=== PATIENT | female | born 1950 | race Caucasian/White ===

== ENCOUNTER 2021-07-09 09:52 | Outpatient (CLI) | payer MEDICARE, BC ==
[2021-07-09 14:52] LABS: BASOPHILS # (AUTO) 0.1 10^3/uL (0.0-0.1); BASOPHILS % (AUTO) 0.7 %; EOSINOPHILS # (AUTO) 0.3 10^3/uL (0.0-0.7); EOSINOPHILS % (AUTO) 4.5 %; HCT - HEMATOCRIT 40.7 % (37.0-47.0); HGB - HEMOGLOBIN 12.9 g/dL (12.0-16.0); LYMPHOCYTES # (AUTO) 2.2 10^3/uL (1.5-3.5); MEAN CORPUSCULAR HEMOGLOBIN 30.4 pg (27.0-31.0); MEAN CORPUSCULAR HGB CONC 31.7 g/dL (32.0-36.0); MEAN PLATELET VOLUME 10.7 fL (7.9-10.8); MONOCYTES # (AUTO) 0.6 10^3/uL (0.0-1.0); MONOCYTES % (AUTO) 7.5 %; NEUTROPHILS # (AUTO) 4.2 10^3/uL (1.5-6.6); PLT - PLATELET COUNT 284 10^3/uL (130-450); RED BLOOD COUNT 4.24 10^6/uL (4.20-5.40); RED CELL DISTRIBUTION WIDTH 14.6 % (12.0-15.0); WHITE BLOOD COUNT 7.3 x10^3/uL (4.8-10.8)
[2021-07-09 15:10] LABS: ALBUMIN 3.8 g/dL (3.2-5.5); ALBUMIN/GLOBULIN RATIO 1.4 (1.0-2.2); ALKALINE PHOSPHATASE 77 IU/L (42-121); ALT ALANINE AMINOTRANSFERASE 18 IU/L (10-60); AST ASPARTATE AMINOTRANSFERASE 18 IU/L (10-42); BILIRUBIN,TOTAL 0.6 mg/dL (0.2-1.0); BUN - BLOOD UREA NITROGEN 18 mg/dL (6-20); CALCIUM 9.1 mg/dL (8.5-10.3); CARBON DIOXIDE - CO2 27 mmol/L (21-32); CHLORIDE 104 mmol/L (101-111); CHOL/HDL RATIO 3.4 (<4.4); CHOLESTEROL 210 mg/dL; CREATININE 0.9 mg/dL (0.4-1.0); GFR - MDRD 62 (>89); GLUCOSE 95 mg/dL (70-100); HDL CHOLESTEROL 61 mg/dL; LDL CHOLESTEROL,CALCULATED 132 mg/dL; LDL/HDL RATIO 2.2 (<4.4); POTASSIUM 3.8 mmol/L (3.5-5.0); SODIUM 139 mmol/L (135-145); TOTAL PROTEIN 6.6 g/dL (6.7-8.2); TRIGLYCERIDES 83 mg/dL; VLDL CHOLESTEROL 17 mg/dL
[2021-07-09 15:22] LABS: THYROID STIMULATING HORMONE 1.04 uIU/mL (0.34-5.60)
[2021-07-09 20:48] LABS: ESTIMATED AVERAGE GLUCOSE 111 mg/dL (70-100); HEMOGLOBIN A1c% 5.5 % (4.27-6.07)
== END 2021-07-09 09:53 | disposition home or self-care (01) ==
LOC: LAB.S 09:52
PROVIDERS: ATTEND Family Medicine
DX: Z00.00 Encounter for general adult medical examination without abnormal findings (principal)
CPT/HCPCS: 36415; 80053; 80061; 83036; 83721; 84443; 85025

== ENCOUNTER 2022-11-03 08:50 | Outpatient (CLI) | payer MEDICARE, OTHER ==
--- NOTE | 2022-11-04 08:49 | Mammography Report ---
BILATERAL DIGITAL SCREENING MAMMOGRAM 3D/2D: 11/03/2022 CLINICAL: Routine screening. Comparison is made to exam dated: 07/31/2021 mammogram - [facility]. There are scattered areas of fibroglandular density in both breasts (category b / 25%-50% glandular t issue). No significant masses, calcifications, or other findings are seen in either breast. There has been no significant interval change. IMPRESSION: NEGATIVE There is no mammographic evidence of malignancy. A 1 year screening mammogram is recommended. Based on the Tyrer Cuzick model (a risk assessment model) the patients lifetime risk is 4.9% and her 10 year risk is 3.4%. According to the ACR, ACS, and NCCN guidelines, an annual breast MRI exam vasquez g with mammogram is recommended if the patients lifetime risk is 20% or greater. This exam was interpreted at Station ID: [id number]. NOTE: For mammograms, a report in lay terms will be sent to the patient. Approximately 15% of breast malignancies will not be visualized mammographically. In the management of a palpable breast mass, a negative mammogram must not discourage biopsy of a clinically suspicious lesion. Electronically Signed By: Devante andrew/brayden:11/03/2022 16:24:49 letter sent: No_Letter ACR BI-RADS Category 1: Negative 3341F PARENCHYMAL PATTERN: (A) - The breast(s) demonstrate(s) scattered fibroglandular densities. BI-RADS CATEGORY: (1) - 1 Mammogram [id number] 1 year screening LATERALITY: (B)
== END 2022-11-03 08:51 | disposition home or self-care (01) ==
LOC: DI.S 08:50
DX: Z12.31 Encounter for screening mammogram for malignant neoplasm of breast (principal)

== ENCOUNTER 2023-07-28 15:25 | Outpatient (CLI) | payer MEDICARE, OTHER ==
--- NOTE | 2023-07-28 23:34 | XRAY Report ---
PROCEDURE: Thoracic Spine 2V INDICATIONS: SCOLIOSIS, TENDERNESS OF SACROILIAC JOINT TECHNIQUE: 2 views of the thoracic spine were acquired. COMPARISON: None. FINDINGS: Bones: No fractures or dislocations. No suspicious bony lesions. Levocurvature of the lower thoraci c spine. Diffusely decreased osseous mineralization. Multilevel degenerative changes of the thoracic spine with intervertebral disc height loss, degenerative endplate changes and osteophytosis. No defin ite compression deformities are seen. Soft tissues: No paravertebral stripe thickening. IMPRESSION: Multilevel degenerative changes of the thoracic spine as described above. No definite compression def ormities are seen. Reviewed by: Nael Mosley MD on 07/28/2023 11:33 PM PST Approved by: Nael Mosley MD on 07/28/2023 11:33 PM PST Station ID: [id number]
--- NOTE | 2023-07-28 23:35 | XRAY Report ---
PROCEDURE: Lumbar Spine 4V INDICATIONS: SCOLIOSIS TECHNIQUE: 3 views of the lumbar spine were acquired. COMPARISON: None. FINDINGS: Bones: 5 [id number] vertebrae are present. Dextrocurvature of the lumbar spine. Grade I anterol isthesis of L4 on L5. Diffusely decreased osseous mineralization. There are multilevel degenerative c hanges of the lumbar spine with facet arthropathy and disc height loss with degenerative endplate roderick nges and marginal spurring. No vertebral body compression fractures. No suspicious bony lesions. N o definite pars interarticularis defects are seen. Soft tissues: Overlying bowel gas pattern is normal. No suspicious soft tissue calcifications. Ath erosclerotic vascular calcifications. IMPRESSION: Multilevel degenerative changes of the lumbar spine as described above. Reviewed by: Nael Irnee MD on 07/28/2023 11:33 PM PST Approved by: Nael Irene MD on 07/28/2023 11:33 PM PST Station ID: [id number]
== END 2023-07-28 15:26 | disposition home or self-care (01) ==
LOC: DI.S 15:25
PROVIDERS: ATTEND Internal Medicine
DX: M47.814 Spondylosis without myelopathy or radiculopathy, thoracic region (principal); M47.816 Spondylosis without myelopathy or radiculopathy, lumbar region; M43.16 Spondylolisthesis, lumbar region

== ENCOUNTER 2023-10-12 08:32 | Day surgery (SDC) | payer MEDICARE, OTHER ==
--- NOTE | 2023-10-12 09:01 | HISTORY & PHYSICAL EXAMINATION ---
PMH/PSH - Past Medical History Cardiovascular: positive: Murmur Respiratory: positive: None Endocrine/Autoimmune: positive: None GI: positive: Hemorrhoids : positive: None HEENT: positive: Dental implants, Other Psych: positive: None Musculoskeletal: positive: Scoliosis, Chronic back pain Derm: positive: None MRSA Hx?: No - Past Surgical History Ortho: positive: Other Meds/Allgy - Home Medications Home Medications: Ambulatory Orders Medication Instructions Recorded Confirmed No Known Home Medications 10/11/23 10/11/23 - Allergies Allergies/Adverse Reactions: Allergies Allergy/AdvReac Type Severity Reaction Status Date / Time No Known Drug Allergies Allergy Verified 10/11/23 13:43 Exam - Vital Signs Vital Signs: Vital Signs x48h Temp Pulse Resp BP Pulse Ox 10/12/23 08:44 97.5 F L 64 12 123/68 100 Impression/Plan - Problem List Problem List: Pre-op H&P I am asked to see Trang for a screening colonoscopy examination. GI symptoms: None Family history of colon cancer: Father Family history of colon polyps: No Personal history of colon polyps: Yes Last colonoscopy examination: 5 years ago Anticoagulant use: None The Past Family, Social and Personal History has been reviewed with the patient. ROS Denies fevers, chills, night sweats, shortness of breath, chest pain, change in the color of skin or urine, diarrhea, constipation, hematemesis, hematochezia, headache, visual changes, muscle aches. PE VSS, Afeb HEENT: Pupils equal, round and reactive to light, sclera anicteric, normal hearing, oral mucous membranes moist and without lesions NECK: Supple without lymphadenopathy, thyromegaly or carotid bruits LUNGS: Clear to auscultation without wheezing HEART: NSR without murmurs CHEST: Equal and symmetric expansion, no rib pain ABD: Soft, nontender, no hepatosplenomegaly, no hernias GROIN: No hernias or lymphadenopathy EXTREMITIES: Normal neuro and muscular exam SKIN: Anicteric Radiologic Studies N/A Assessment Request for a screening colonoscopy examination. Plan Screening colonoscopy under IV sedation [facility] Consent: Trang has been counseled for the procedure, it's indications, risks, benefits and expected outcome as well as alternative therapies. We specifically discussed risks associated with anesthesia and insertion of the endoscope into the large intestine which includes bleeding and injury to the colon which may require surgical intervention. Trang understands, agrees, and consents to the proposed operative strategy and requests that we proceed with the procedure as outlined in our discussion. Joshua Acuna MD, [facility] General Surgery Service
[2023-10-12] MEDS: LACTATED RINGERS 1,000 ML IV ONE (09:12)
--- NOTE | 2023-10-12 09:36 | ANESTHESIA ---
Pre-Anesthesia VS, & Labs - Diagnosis screening - Procedure colonoscopy Vital Signs: Temp Pulse Resp BP Pulse Ox O2 Flow Rate 36.4 C L 64 12 123/68 100 10/12/23 08:44 10/12/23 08:44 10/12/23 08:44 10/12/23 08:44 10/12/23 08:44 Height: 56 ft Weight (kg): 58 kg Body Mass Index: 0.1 BMI Classification: Underweight - NPO Other (prep as directed) - Is Patient ?: No Home Medications and Allergies Home Medications: Ambulatory Orders No Known Home Medications 10/11/23 No Known Home Medications 10/11/23 Allergies/Adverse Reactions: Allergies Allergy/AdvReac Type Severity Reaction Status Date / Time No Known Drug Allergies Allergy Verified 10/11/23 13:43 Anes History & Medical History - Anesthetic History Anesthesia Complications: reports: No previous complications - Medical History Cardiovascular: reports: Murmur Pulmonary: reports: None Gastrointestinal: reports: Hemorrhoids Urinary: reports: None Musculoskeletal: reports: Scoliosis, Chronic back pain Endocrine/Autoimmune: reports: None Skin: reports: None Smoking Status: Former smoker Psychosocial: reports: Alcohol (one glass of wine a week) - Surgical History Orthopedic: reports: Other Exam General: Alert, Oriented x3 Dental: WNL Mouth Opening: Greater than 4 Fingerbreadths Neck Mobility: Normal Mallampati classification: II Thyromental Distance: greater than 6 cm Respiratory: Lungs clear Cardiovascular: Regular rate Plan Anesthesia Type: Total IV Consent for Procedure(s) Verified and Reviewed: Yes Code Status: Attempt Resuscitation ASA classification: 2-Mild systemic disease Is this case an emergency?: No
[2023-10-12] MEDS ORDERED: PROPOFOL 200 MG/20 ML VIAL IVP ONE (09:52)
[2023-10-12] MEDS ORDERED: LIDOCAINE-MPF 2% 5 ML VIAL ONE (09:54)
[2023-10-12] MEDS: LACTATED RINGERS 700 ML IV ONE (10:21)
[2023-10-12 10:23] VITALS: O2SAT 99
--- NOTE | 2023-10-12 10:49 | ANESTHESIA POST OP EVALUATION ---
Anesthesia Post Eval - Post Anesthesia Eval Vitals: Last Vital Signs Temp 36.2 C L 10/12/23 10:20 Pulse 54 L 10/12/23 10:20 Resp 14 10/12/23 10:20 BP 108/67 10/12/23 10:20 Pulse Ox 99 10/12/23 10:20 O2 Flow Rate CV Function Including HR & BP: Stable Pain Control: Satisfactory Nausea & Vomiting: Negative Mental Status: Baseline Respiratory Status: Airway Patent Hydration Status: Satisfactory Anesthesia Complications: None
[2023-10-12 11:02] VITALS: BP 111/90
== END 2023-10-12 08:33 | disposition home or self-care (01) ==
LOC: SDS 08:32
PROVIDERS: ATTEND Surgery
PROC: 0DBN8ZX Excision of Sigmoid Colon, Via Natural or Artificial Opening Endoscopic, Diagnostic (ICD-10-PCS; 2023-10-12)
PROC: 0DBH8ZX Excision of Cecum, Via Natural or Artificial Opening Endoscopic, Diagnostic (ICD-10-PCS; 2023-10-12)
PROC: 0DBK8ZX Excision of Ascending Colon, Via Natural or Artificial Opening Endoscopic, Diagnostic (ICD-10-PCS; principal; 2023-10-12 10:00)
DX: Z12.11 Encounter for screening for malignant neoplasm of colon (principal); D12.0 Benign neoplasm of cecum; D12.2 Benign neoplasm of ascending colon; K63.5 Polyp of colon; K64.1 Second degree hemorrhoids; K57.30 Diverticulosis of large intestine without perforation or abscess without bleeding; Z87.891 Personal history of nicotine dependence
CPT/HCPCS: 45380; 45385; J7120